=== PATIENT | female | born 1950 ===

== ENCOUNTER 2023-12-21 10:10 | Outpatient (AMB) | payer MEDICARE, SELFPAY ==
--- NOTE | 2023-12-21 10:12 | AM.OFFWIN_ITS ---
Intake Vital Signs 12/21/23 10:21 Height 5 ft 3 in Weight 215 lb BMI 38.1 BP 118/86 Blood Pressure Location Lt brachial Position Sitting Pulse 82 Pulse Source Pulse Oximeter Temp 97.4 F Temp Source Temporal Artery Scan Pulse Oximetry (%) 96 Oxygen Delivery Method Room Air Intake Visit Reasons: [employer]/lump under neck (lobby) Intake Note: pt is here today for lump under neck started yesterday Patient Tobacco Use Status: Never used Tobacco Allergies No Known Allergies Allergy (Verified 12/21/23 10:22) Do you need a note to return to daycare/school/sports/work: No HPI HPI Comments History of Present Illness Details 73 y/o female patient presents to the [facility] in clinic with c/o lump on neck since yesterday night. Denies any URI symptoms today. PFSH Social History Patient Tobacco Use Status: Never used Tobacco Physical Exam Vital Signs: Last Vital Signs Temp 97.4 F 12/21/23 10:21 Pulse 82 12/21/23 10:21 BP 118/86 12/21/23 10:21 Pulse Ox 96 12/21/23 10:21 Oxygen Delivery Method Room Air 12/21/23 10:21 BMI result Body Mass Index 38.1 HEENT Head: Yes normocephalic Ears: external ears normal and TM's normal bilaterally General nose exam: Abnormal mucous membranes and turbinates present boggy and erythematous Face and sinus: Yes sinuses nontender Mouth: oropharynx normal and moist mucous membranes Throat: Yes posterior oropharynx normal Eyes Pupils: Equal, round and reactive pupils present Neck Neck: Yes full ROM and Yes lymphadenopathy (supraclavicular node swollen and tender) Thyroid: Thyroid normal Lymphatic: lymphedema Resp Effort & Inspection: normal respiratory effort Auscultation: clear to auscultation bilaterally Cardio Rate: regular rate Rhythm: regular rhythm Neuro Cranial nerves: Yes Equal, round and reactive pupils present Assessment & Plan Assessment & Plan (1) Supraclavicular adenopathy: Code(s): R59.0 - Localized enlarged lymph nodes Plan: - Will continue to monitor - Watch for signs of infection - Have Dentures cleaned - May apply warm compress - Acetaminophen for painrelief. Coding Level of Care Code Est Pt Level 3 (74627) Diagnoses Supraclavicular adenopathy R59.0 Time Spent (min) 15
[2023-12-21 10:21] VITALS: BP 118/86; PULSE 82; TEMP 36.3; O2SAT 96; BMI 38.1
== END 2023-12-21 11:54 | disposition home or self-care (01) ==
PROVIDERS: Visit Provider Nurse Practitioner Family
DX: R59.0 Localized enlarged lymph nodes (principal)
CPT/HCPCS: 99213